=== PATIENT | male | born 1960 | race Caucasian/White ===

== ENCOUNTER → 2017-01-05 | Outpatient (CLI) | payer OTHER | LOC: LAB 16:12 | DX: E13.9 Other specified diabetes mellitus without complications (principal) ==

== ENCOUNTER → 2017-07-08 | Outpatient (CLI) | payer OTHER | LOC: LAB 16:59 | DX: E13.9 Other specified diabetes mellitus without complications (principal); I10 Essential (primary) hypertension ==

== ENCOUNTER → 2017-10-13 | Outpatient (CLI) | payer OTHER | LOC: LAB 08:33 | DX: E13.9 Other specified diabetes mellitus without complications (principal); I10 Essential (primary) hypertension ==

== ENCOUNTER → 2018-04-15 | Outpatient (CLI) | payer OTHER | LOC: LAB 10:17 | DX: E13.9 Other specified diabetes mellitus without complications (principal); I10 Essential (primary) hypertension; B35.4 Tinea corporis; B35.1 Tinea unguium ==

== ENCOUNTER → 2018-08-23 | Outpatient (CLI) | payer OTHER | LOC: RAD 15:48 | DX: M17.12 Unilateral primary osteoarthritis, left knee (principal); I10 Essential (primary) hypertension ==

== ENCOUNTER → 2019-01-10 | Outpatient (CLI) | payer OTHER ==
[~2019-01-10] MED LIST: COREG 3.123.125 MG/T; LEVEMIR100 U/M1 SQ; LISINOPRIL40 MG PO; NOVOLOG 100U100 U/ML SQ
[2019-01-10 17:06] LABS: HEMATOCRIT 44.7 % (42.0-52.0); HEMOGLOBIN 14.7 g/dL (13.5-18.0); MEAN CELL VOLUME 91 fl (78-100); MEAN CORPUSCULAR HEMOGLOBIN 30 pg (27-31); MEAN CORPUSCULAR HGB CONC 33 g/dL (33-37); MEAN PLATELET VOLUME 9.8 fl (7.4-10.4); PLATELET COUNT 267 K/mm3 (130-400); RED CELL DISTRIBUTION WIDTH 13.4 % (11.5-14.5); WHITE BLOOD COUNT 5.5 K/mm3 (4.8-10.8)
[2019-01-10 18:45] LABS: LYMPHOCYTE 29 % (20-51); MONOCYTE 16 % (3-10); NEUTROPHILS 53 % (42-75)
== END ==
LOC: LAB 16:39
PROVIDERS: Family Medicine
DX: E11.9 Type 2 diabetes mellitus without complications (principal)